=== PATIENT | male | born 1995 | race Caucasian/White ===

== ENCOUNTER 2017-03-18 09:20 | Emergency (ER) | payer BC ==
[~2017-03-18] VITALS: Ht 172.7 cm; Wt 77.1 kg
[2017-03-18] MEDS ORDERED: ZYRTEC10 MG PO (09:38)
== END 2017-03-18 11:48 | disposition home or self-care (01) ==
LOC: ED 09:20
DX: R10.31 Right lower quadrant pain (principal); Z79.899 Other long term (current) drug therapy
CPT/HCPCS: 80053; 81001; 85025; 99283